=== PATIENT | male | born 1945 | race Caucasian/White ===

== ENCOUNTER 2019-09-12 13:02 | Emergency (ER) | payer OTHER, MEDICAID ==
[~2019-09-12] VITALS: Ht 165.1 cm; Wt 81.6 kg
[2019-09-12 13:12] VITALS: Ht 165.1 cm; Wt 81.6 kg
[2019-09-12 14:13] VITALS: BP 154/88
== END 2019-09-12 14:13 | disposition home or self-care (01) ==
LOC: ED 13:02
DX: S80.212A Abrasion, left knee, initial encounter (principal); B35.3 Tinea pedis; E11.9 Type 2 diabetes mellitus without complications; I10 Essential (primary) hypertension; W18.39XA Other fall on same level, initial encounter; Y93.89 Activity, other specified; Y92.89 Other specified places as the place of occurrence of the external cause; Y99.8 Other external cause status
CPT/HCPCS: 82962

== ENCOUNTER 2019-10-28 15:40 | Emergency (ER) | payer OTHER, MEDICAID ==
[~2019-10-28] VITALS: Ht 162.6 cm; Wt 81.6 kg
[2019-10-28 15:44] VITALS: BP 175/98; Ht 162.6 cm; Wt 81.6 kg
== END 2019-10-28 17:49 | disposition home or self-care (01) ==
LOC: ED 15:40
DX: L03.115 Cellulitis of right lower limb (principal); E11.9 Type 2 diabetes mellitus without complications; I10 Essential (primary) hypertension
CPT/HCPCS: 82962

== ENCOUNTER 2019-11-02 07:13 | Emergency (ER) | payer OTHER, MEDICAID ==
[~2019-11-02] VITALS: Ht 162.6 cm; Wt 82.1 kg
[2019-11-02 07:22] VITALS: Ht 162.6 cm; Wt 82.1 kg
[2019-11-02 09:16] VITALS: BP 168/74
== END 2019-11-02 10:13 | disposition home or self-care (01) ==
LOC: ED 07:13
DX: L50.9 Urticaria, unspecified (principal); I10 Essential (primary) hypertension; E11.9 Type 2 diabetes mellitus without complications; M79.605 Pain in left leg; M79.604 Pain in right leg; G89.29 Other chronic pain
CPT/HCPCS: 82962